=== PATIENT | male | born 1985 | race Caucasian/White ===

== ENCOUNTER 2023-02-07 21:28 | Emergency (ER) | payer OTHER ==
[~2023-02-07] VITALS: Ht 182.9 cm; Wt 81.7 kg
[2023-02-07 21:39] VITALS: BP 131/84
[2023-02-07] MEDS ORDERED: SULTRIDS PO (23:01)
== END 2023-02-07 23:09 | disposition home or self-care (01) ==
LOC: ER 21:28
DX: L02.211 Cutaneous abscess of abdominal wall (principal); F17.210 Nicotine dependence, cigarettes, uncomplicated
CPT/HCPCS: 10060; 96372-59; 99283-25; A9270; J1885